=== PATIENT | female | born 1990 | race Caucasian/White ===

== ENCOUNTER → 2018-10-26 | Outpatient (CLI) | payer OTHER | LOC: M LRY 11:32 | PROVIDERS: ATTEND Physician Assistant | DX: Z53.9 Procedure and treatment not carried out, unspecified reason (principal); R06.2 Wheezing ==

== ENCOUNTER → 2018-10-26 | Outpatient (CLI) | payer OTHER ==
--- NOTE | 2018-10-26 12:19 | REP ---
Chest two views HISTORY: Cough Comparison: None Patchy density is present in the left lower lobe consistent with an infiltrate. The right lung is clear. The heart is normal in size. The pulmonary vasculature is normal in appearance. The bony structure is intact. IMPRESSION: Left lower lobe infiltrate. Electronically Signed by Santosh Tuttle MD 10/26/2018 12:11 P
== END ==
LOC: M LRY 11:33
PROVIDERS: ATTEND Physician Assistant
DX: R91.8 Other nonspecific abnormal finding of lung field (principal)
CPT/HCPCS: 71046; 87804; G0463

== ENCOUNTER → 2018-12-13 | Outpatient (CLI) | payer OTHER ==
--- NOTE | 2018-12-13 13:18 | REP ---
TWO-VIEW CHEST: REASON: Cough. COMPARISON: 10/26/2018 FINDINGS: The superior mediastinal structures are midline. The cardiac silhouette is unremarkable in size, shape, and position. The diaphragmatic surfaces of the lungs are regular, and the costophrenic angles are clear. The pulmonary rivera are clear. The imaged osseous structures are intact. IMPRESSION: There is no acute cardiopulmonary disease. Electronically Signed by Phil Doll DO 12/13/2018 01:36 P
== END ==
LOC: M LRY 11:54
PROVIDERS: ATTEND Nurse Practitioner Family
DX: R05 Cough (principal)
CPT/HCPCS: 71046; G0463

== ENCOUNTER → 2020-02-14 | Outpatient (CLI) | payer OTHER ==
--- NOTE | 2020-02-21 11:34 | REP ---
COMPLETE OBSTETRICAL ULTRASOUND CLINICAL: Anatomical assessment. FINDINGS: Ultrasound examination demonstrates a single live intrauterine in cephalic presentation. Placenta noted anteriorly and grade 1 without placenta previa or abruption. Amniotic fluid volume is normal. Cervix measures 3.6 cm in length and appears closed. Gestational age by current measurements 19 weeks 4 days with estimated date of delivery 07/06/2020. heart rate 143 beats per minute. Estimated weight 289 grams. Anatomical assessment demonstrates normal cranium, ventricles, choroid plexus, cerebellum, posterior fossa, facial features, four chamber heart, ventricular outflow tracts, diaphragm, stomach, three-vessel cord/cord insertion, kidneys, bladder, spine, and extremities. IMPRESSION: Single live intrauterine in cephalic presentation demonstrating appropriate interval growth. Anatomical assessment is complete and normal. [facility]
== END ==
LOC: M WHC 07:42
PROVIDERS: ATTEND Advanced Practice Midwife
DX: Z34.82 Encounter for supervision of other normal pregnancy, second trimester (principal); Z3A.19 19 weeks gestation of pregnancy

== ENCOUNTER → 2020-04-03 | Outpatient (REF) | payer OTHER ==
[2020-04-03 13:26] LABS: HEMATOCRIT 36.3 % (36.0-47.0); HEMOGLOBIN 11.6 g/dl (12.0-15.5); MEAN CORPUSCULAR HEMOGLOBIN 30.8 pg (27.0-33.0); MEAN CORPUSCULAR VOLUME 96.3 fl (80.0-96.0); PLATELET COUNT, AUTOMATED 338 10^3/uL (150-450); RED BLOOD COUNT 3.77 10^6/uL (4.00-5.40); WHITE BLOOD COUNT 9.2 10^3/uL (4.0-10.0)
== END ==
LOC: M PLALAB 10:27
PROVIDERS: ATTEND Specialist
DX: Z34.02 Encounter for supervision of normal first pregnancy, second trimester (principal); Z3A.00 Weeks of gestation of pregnancy not specified

== ENCOUNTER → 2020-06-14 | Outpatient (REF) | payer OTHER | LOC: M SFHCWAGY 15:13 | PROVIDERS: ATTEND Specialist | DX: Z34.03 Encounter for supervision of normal first pregnancy, third trimester (principal) | CPT/HCPCS: 87081; G0463 ==

== ENCOUNTER 2020-07-03 16:47 | Inpatient (IN) | payer OTHER ==
[~2020-07-03] VITALS: Ht 162.6 cm; Wt 95.7 kg
[2020-07-03] VITALS (12 sets, daily range): BP systolic 132–165; BP diastolic 86–110
--- OUTSIDE RECORDS SUMMARY | 2020-07-03 16:52 | CCD ---
Author Author [facility] Organization [facility] Address Unknown Phone Unavailable Care Team Providers Care Icu Manager Name Role Phone Destinee Lobato Unavailable PROBLEMS Type Condition ICD9-CM Code [id number] Code Onset Dates Condition S tatus SNOMED Code Notes Problem Supervision of other normal Z34.80 Ac tive [id number] ALLERGIES No Known Allergies ENCOUNTERS from 1992 to 2020-06-22 Encounter Location Date Provider Diagnosis [facility] [address] [place] [phone] May, Destinee Lobato Encounter for prenat al care in third trimester of first Z34.03 IMMUNIZATIONS No Information SOCIAL HISTORY Tobacco Use: Social History Observation Description Date Details (start date - stop date) Never Smoker Sex Assigned At : Social History Observation Description Sex Assigned At Unknown Domestic Violence: Question Answer Notes Status: No history of abuse Alcohol Screening: Question Answer Notes Did you have a drink containing alcohol in the past year? No Points 0 Interpretation Negative Tobacco Use: Question Answer Notes Are you a: never smoker REASON FOR REFERRAL No Information VITAL SIGNS Weight 207.6 lbs May, Weight-kg 94.17 kg May, Height 64 in May, BMI 35.634 kg/m2 May, Blood pressure systolic 130 mm Hg May, Blood pressure diastolic 80 mm Hg May, MEDICATIONS Medication SIG (Take, Route, Frequency, Duration) Notes Start Da te End Date Status ProAir HFA 108 (90 Base) mcg/act 2 puffs as needed Inhalation qid prn Active Melatonin 10 MG as directed Orally A ctive Multivitamin Gummies Adults - as directed Orally Active Flovent HFA 110 MCG/ACT 1 puff Inhalation Twice a day Active Benadryl Allergy 25 MG 1 tablet at bedtime as needed Orally 2 at HS Active PROCEDURES No Information RESULTS No Results REASON FOR VISIT 1wk pn MEDICAL (GENERAL) HISTORY Type Description Date Medical History asthma Surgical History wisdom teeth Hospitalization History No know Hospitalization history Goals Section No Information Health Concerns No Information MEDICAL EQUIPMENT No Information MENTAL STATUS No Information FUNCTIONAL STATUS No Information ASSESSMENTS Encounter Date Diagnosis Assessment Notes Treatment Notes Treatm ent Clinical Notes May, Encounter for care in third trimester of first (ICD-10 - Z34.03) PLAN OF TREATMENT Next Appt Details 1 Week Reason: Provider Name:Monika Teixeira, 2020-06 09:00:00 AM, [address] [place] [address], [phone], Provider Name:Santosh Justice, 2020-07-05 09:00:00 AM, [address] [place] [address], [phone], Insurance Providers Payer Name Payer Address Payer Phone Insured Name Patient Relati onship to Insured Coverage Start Date Coverage End Date [facility] [employer] [address] [place] [id number] ANGELICA HERNÁNDEZ
--- OUTSIDE RECORDS SUMMARY | 2020-07-03 16:53 | CCD ---
Author Author [facility] Organization [facility] Address Unknown Phone Unavailable Care Team Providers Care Multiple Games Dealer Name Role Phone Philip Rachelle Unavailable PROBLEMS Type Condition ICD9-CM Code [id number] Code Onset Dates Condition S tatus SNOMED Code Notes Problem Supervision of other normal Z34.80 Ac tive [id number] ALLERGIES No Known Allergies ENCOUNTERS from 1992 to 2020-04-26 Encounter Location Date Provider Diagnosis [facility] [address] [place] [phone] Apr, Rachelle Palacios Encounter for superv ision of normal first in third trimester Z34.03 and 29 weeks gestation of Z3A.29 IMMUNIZATIONS No Information SOCIAL HISTORY Tobacco Use: [...] FOR REFERRAL No Information VITAL SIGNS Weight 198.0 lbs Apr, Height 64 in Apr, BMI 33.987 kg/m2 Apr, Blood pressure systolic 118 mm Hg Apr, Blood pressure diastolic 74 mm Hg Apr, MEDICATIONS Medication SIG (Take, Route, Frequency, Duration) Notes Start Da te End Date Status Benadryl Allergy 25 MG 1 tablet at bedtime as needed Orally 2 at HS Active Flovent HFA 110 MCG/ACT 1 puff Inhalation Twice a day Active Multivitamin Gummies Adults - as directed Orally Active Melatonin 10 MG as directed Orally A ctive ProAir HFA 108 (90 Base) mcg/act 2 puffs as needed Inhalation qid prn Active PROCEDURES No Information RESULTS No Results REASON FOR VISIT 4 WK PN MEDICAL (GENERAL) HISTORY Type Description Date Medical History asthma Surgical History wisdom teeth Hospitalization History none Goals Section No Information Health Concerns No Information MEDICAL EQUIPMENT No Information MENTAL STATUS No Information FUNCTIONAL STATUS No Information ASSESSMENTS Encounter Date Diagnosis Assessment Notes Treatment Notes Treatm ent Clinical Notes Apr, Encounter for supervision of normal first in third trimester (ICD-10 - Z34.03) Apr, 29 weeks gestation of (ICD-10 - Z3A.29 ) PLAN OF TREATMENT Next Appt Details 2 Weeks Reason: Provider Name:Santosh Justice 2020-05-10 08:40:00 AM, [address] [place], [phone], Follow Up:2 Weeksprenatal Insurance Providers Payer Name Payer Address Payer Phone Insured Name Patient Relati onship to Insured Coverage Start Date Coverage End Date [facility] [employer] [address] [place] [id number] ANGELICA HERNÁNDEZ
--- OUTSIDE RECORDS SUMMARY | 2020-07-03 16:53 | CCD ---
Author Author [facility] Organization [facility] Address Unknown Phone Unavailable Care Team Providers Care Inspector Chief Name Role Phone Patrica Marcell Unavailable PROBLEMS Type Condition ICD9-CM Code [id number] Code Onset Dates Condition S tatus SNOMED Code Notes Problem Supervision of other normal Z34.80 Ac tive [id number] ALLERGIES No Known Allergies ENCOUNTERS from 1992 to 2020-06-04 Encounter Location Date Provider Diagnosis [facility] [address] [place] [phone] May, Marcell Burciaga Encounter for superv ision of normal first in third trimester Z34.03 and 34 weeks gestation of Z3A.34 IMMUNIZATIONS No Information SOCIAL HISTORY Tobacco Use: [...] FOR REFERRAL No Information VITAL SIGNS Weight 204 lbs May, Height 64 in May, BMI 35.017 kg/m2 May, Blood pressure systolic 112 mm Hg May, Blood pressure diastolic 70 mm Hg May, MEDICATIONS Medication SIG (Take, Route, Frequency, Duration) Notes Start Da te End Date Status Multivitamin Gummies Adults - as directed Orally Active ProAir HFA 108 (90 Base) mcg/act 2 puffs as needed Inhalation qid prn Active Melatonin 10 MG as directed Orally A ctive Flovent HFA 110 MCG/ACT 1 puff Inhalation Twice a day Active Benadryl Allergy 25 MG 1 tablet at bedtime as needed Orally 2 at HS Active PROCEDURES No Information RESULTS No Results REASON FOR VISIT 2 WK PN MEDICAL (GENERAL) HISTORY Type Description Date Medical History asthma Surgical History wisdom teeth Hospitalization History No know Hospitalization history Goals Section No Information Health Concerns No Information MEDICAL EQUIPMENT No Information MENTAL STATUS No Information FUNCTIONAL STATUS No Information ASSESSMENTS Encounter Date Diagnosis Assessment Notes Treatment Notes Treatm ent Clinical Notes May, Encounter for supervision of normal first in third trimester (ICD-10 - Z34.03) May, 34 weeks gestation of (ICD-10 - Z3A.34 ) PLAN OF TREATMENT Next Appt Details 2 Weeks Reason:PN Provider Name:Santosh Justice, 2020-06-14 09:00:00 AM, [address] [place] [address], [phone], Provider Name:Destinee Lobato, 2020-06-21 0 3:00:00 PM, [address] [place] [address], [phone], Provider Name:Monika Teixeira, 2020-06 09:00:00 AM, [address] [place] [address], [phone], Provider Name:Santosh Justice, 2020-07-05 09:00:00 AM, [address] [place] [address], [phone], Follow Up:2 WeeksPN Insurance Providers Payer Name Payer Address Payer Phone Insured Name Patient Relati onship to Insured Coverage Start Date Coverage End Date [facility] [employer] [address] [facility] [id number] ANGELICA HERNÁNDEZ
--- OUTSIDE RECORDS SUMMARY | 2020-07-03 16:53 | CCD ---
Author Author [facility] Organization [facility] Address Unknown Phone Unavailable Care Team Providers Care Housing Relocation Name Role Phone Santosh Justice Unavailable PROBLEMS Type Condition ICD9-CM Code TIR98-NE Code Onset Dates Condition S tatus SNOMED Code Notes Problem Supervision of other normal Z34.80 Ac tive [id number] ALLERGIES No Known Allergies ENCOUNTERS from 1992 to 2020-06-21 Encounter Location Date Provider Diagnosis [facility] [address] [place] [phone] May, Santosh Justice First in a dolescent 16 years of age or older in third trimester Z34.03 and 36 weeks gestation of Z3A.36 IMMUNIZATIONS No Information SOCIAL HISTORY Tobacco Use: [...] FOR REFERRAL No Information VITAL SIGNS Weight 208.2 lbs May, Weight-kg 94.44 kg May, Height 64 in May, BMI 35.737 kg/m2 May, Blood pressure systolic 124 mm Hg May, Blood pressure diastolic 80 [...] at HS Active PROCEDURES No Information RESULTS Component Value Reference Range GROUP B STREP CULTURE Reviewed date:06/19/2020 12:21:30 Interpretation: Performing Lab:Pending Sale To [facility], [facility] [address] [facility] [id number] , ,[place] [id number] REASON FOR VISIT 2 WK PN MEDICAL (GENERAL) HISTORY Type Description Date Medical History asthma Surgical History wisdom teeth Hospitalization History No know Hospitalization history Goals Section No Information Health Concerns No Information MEDICAL EQUIPMENT No Information MENTAL STATUS No Information FUNCTIONAL STATUS No Information ASSESSMENTS Encounter Date Diagnosis Assessment Notes Treatment Notes Treatm ent Clinical Notes May, First in adolescen t 16 years of age or older in third trimester (ICD-10 - Z34.03) May, 36 weeks gestation of (ICD-10 - Z3A.36 ) PLAN OF TREATMENT Next Appt Details Provider Name:Monika Teixeira, 2020-06 09:00:00 AM, [address] [place] [address], [phone], Provider Name:Santosh Justice, 2020-07-05 09:00:00 AM, [address] [place] [address], [phone], Insurance Providers Payer Name Payer Address Payer Phone Insured Name Patient Relati onship to Insured Coverage Start Date Coverage End Date [facility] [employer] [address] [place] [id number] ANGELICA HERNÁNDEZ
--- OUTSIDE RECORDS SUMMARY | 2020-07-03 16:53 | CCD ---
Author Author [facility] Organization [facility] Address Unknown Phone Unavailable Care Team Providers Care Animal Killer Name Role Phone O'elder, A Lane PA Unavailable Unavailable O'elder, A Lane PA Unavailable Unavailable O'elder, A Lane PA Unavailable Unavailable O'elder, A Lane PA Unavailable Unavailable O'elder, A Lane PA Unavailable Unavailable O'elder, A Lane PA Unavailable Unavailable O'elder, A Lane PA Unavailable Unavailable O'elder, A Lane PA Unavailable Unavailable O'elder, A Lane PA Unavailable Unavailable O'elder, A Lane PA Unavailable Unavailable O'elder, A Lane PA Unavailable Unavailable O'elder, A Lane PA Unavailable Unavailable O'elder, A Lane PA Unavailable Unavailable O'elder, A Lane PA Unavailable Unavailable O'elder, A Lane PA Unavailable Unavailable O'elder, A Lane PA Unavailable Unavailable O'elder, A Lane PA Unavailable Unavailable O'elder, A Lane PA Unavailable Unavailable O'elder, A Lane PA Unavailable Unavailable O'elder, A Lane PA Unavailable Unavailable O'elder, A Lane PA Unavailable Unavailable O'elder, A Lane PA Unavailable Unavailable O'elder, A Lane PA Unavailable Unavailable O'elder, A Lane PA Unavailable Unavailable O'elder, A Lane PA Unavailable Unavailable O'elder, A Lane PA Unavailable Unavailable O'elder, A Lane PA Unavailable Unavailable O'elder, A Lane PA Unavailable Unavailable O'elder, A Lane PA Unavailable Unavailable O'elder, A Lane PA Unavailable Unavailable O'elder, A Lane PA Unavailable Unavailable O'elder, A Lane PA Unavailable Unavailable Re-disclosure Warning The records that you are about to access may contain information from federally-assisted alcohol or drug abuse programs. If such information is present, then the following federally mandated warning applies: This information has been disclosed to you from records protected by federal confidentiality rules (42 CFR part 2). The federal rules prohibit you from making any further disclosure of this information unless further disclosure is expressly permitted by the written consent of the person to whom it pertains or as otherwise permitted by 42 CFR part 2. A general authorization for the release of medical or other information is NOT sufficient for this purpose. The Federal rules restrict any use of the information to criminally investigate or prosecute any alcohol or drug abuse patient.The records that you are about to access may contain highly sensitive health information, the redisclosure of which is protected by Article 27-F of the [facility] Public Health law. If you continue you may have access to information: Regarding HIV / AIDS; Provided by facilities licensed or operated by the [facility] Office of Mental Health; or Provided by the [facility] Office for People With Developmental Disabilities. If such information is present, then the following [facility] mandated warning applies: This information has been disclosed to you from confidential records which are protected by state law. State law prohibits you from making any further disclosure of this information without the specific written consent of the person to whom it pertains, or as otherwise permitted by law. Any unauthorized further disclosure in violation of state law may result in a fine or intermediate sentence or both. A general authorization for the release of medical or other information is NOT sufficient authorization for further disc losure. Encounters Encounter Providers Location Date Indications Data Source(s ) ( ESTOB) [facility] OB [address] [place] [address] 06/21/2020 12:00:00 AM EST eCW1 ([facility]) ( ESTOB) [facility] Est OB [address] [place] [address] 06/14/2020 12:00:00 AM EST eCW1 ([facility]) ( ESTOB) [facility] OB [address] [place] [address] 05/31/2020 12:00:00 AM EST eCW1 ([facility]) ( ESTOB) [facility] OB [address] [place] [address] 05/15/2020 12:00:00 AM EST eCW1 ([facility]) Unknown [address] [facility] [address] 04/30/2020 12:00:00 AM EST eCW1 ([facility]) ( ESTOB) [facility] Est OB [address] [place] [address] 04/24/2020 12:00:00 AM EST eCW1 ([facility]) ( ESTOB) [facility] Est OB [address] [place] [address] 03/22/2020 12:00:00 AM EDT eCW1 ([facility]) ( NEWOB) [facility] New OB Visit [address] [place] [address] 12/13/2019 12:00:00 AM EDT eCW1 ([facility]) Outpatient Attender: Lane ANTHONY [facility] 11/13/2019 03:40:00 PM EDT MEDENT ([facility]) Outpatient Attender: Lane ANTHONY [facility] 10/20/2019 08:00:00 AM EDT [facility] ([facility]) Medications Medication Brand Name Start Date Product Form Dose Route Admi nistrative Instructions Pharmacy Instructions Status Indications Reaction Description Data Source(s) 120 ACTUAT Fluticasone propionate 0.11 MG/ACTUAT Meter ed Dose Inhaler [Flovent] Flovent HFA 06/07/2019 12:00:00 AM EST ORAL active MEDENT ([facility]) Insurance Providers Payer name Policy type / Coverage type Policy ID Covered republican ID Covered republican's relationship to ward Policy Ward Plan Information [facility] [id number] [facility] [id number] [facility] [id number] [facility] [id number] ANSI-Not a Secondary Insurance [id number] Problems, Conditions, and Diagnoses Code Display Name Description Problem Type Effective Dates Data Source(s) Z34.80 care Supervision of other normal Tone garcia 12/11/2019 12:00:00 AM EDT eCW1 ([facility]) [id number] Mild persistent asthma Mild persistent asthma Problem 10/20/2019 12:00:00 AM EDT MEDENT ([facility]) [id number] Vitamin D deficiency Vitamin D deficiency Problem 10/20/2019 12:00:00 AM EDT MED[facility] ([facility]) Other sleep disorders Other sleep disorders Problem 10/20/2019 12:00:00 AM EDT MED[facility] ([facility]) Results ID Date Data Source GROUP B STREP CULTURE 06/14/2020 12:00:00 AM EST eCW1 ([facility]) Name Value Range Interpretation Code Description Data Linda rce(s) Supporting Document(s) GROUP B STREP CULTURE eCW1 (Pending sale to [facility]) ID Date Data Source Glucose Challenge Test 1 Hour 04/03/2020 12:00:00 AM EST eCW 1 ([facility]) Name Value Range Interpretation Code Description Data Linda rce(s) Supporting Document(s) 117 LESS THAN 140 GLUCOSE CHALLENGE TEST 1 HOUR eCW1 ([facility]) ID Date Data Source CBC - Complete Blood Count 04/03/2020 12:00:00 AM EST eCW1 ( [facility]) Name Value Range Interpretation Code Description Data Linda rce(s) Supporting Document(s) 9.2 4.0-10.0 WHITE BLOOD COUNT eCW1 ([facility]) 3.77 4.00-5.40 RED BLOOD COUNT eCW1 ([facility]) 96.3 80.0-96.0 MEAN CORPUSCULAR VOLUME e CW1 ([facility]) 11.6 12.0-15.5 HEMOGLOBIN eCW1 ([facility]) 36.3 36.0-47.0 HEMATOCRIT eCW1 ([facility]) 30.8 27.0-33.0 MEAN CORPUSCULAR HEMOGLOB IN eCW1 ([facility]) 338 150-450 PLATELET COUNT, AUTOMATED eCW1 ([facility]) 32.0 32.0-36.5 MEAN CORPUSCULAR HGB CONC eCW1 ([facility]) 12.9 11.5-14.5 RED CELL DISTRIBUTION WID TH eCW1 ([facility]) ID Date Data Source Type and Screen (D Rh Antibody Screen) 04/03/2020 12:00:00 A M EST eCW1 ([facility]) Name Value Range Interpretation Code Description Data Linda rce(s) Supporting Document(s) B POSITIVE BLOOD TYPE eCW1 ([facility]) NEGATIVE AB SCREEN (INDIRECT COOMB S)VIS eCW1 ([facility]) ID Date Data Source CHLAMYDIA & GC DNA AMPLIFICAT 12/15/2019 03:35:52 AM EDT eCW 1 ([facility]) Name Value Range Interpretation Code Description Data Linda rce(s) Supporting Document(s) Chlamydia trachomatis rRNA [Presence] in Unspecified specimen by Probe and target amplification method NEGATIVE eCW1 ([facility]) ID Date Data Source URINE CULTURE 12/15/2019 03:18:51 AM EDT eCW1 ([facility]) Name Value Range Interpretation Code Description Data Linda rce(s) Supporting Document(s) eCW1 ([facility]) ID Date Data Source Type and Screen Prenatal1 12/15/2019 03:18:47 AM EDT eCW1 ([facility]) Name Value Range Interpretation Code Description Data Linda rce(s) Supporting Document(s) NEGATIVE eCW1 ([facility]) ID Date Data Source HBSAG 12/15/2019 03:18:42 AM EDT eCW1 ([facility]) Name Value Range Interpretation Code Description Data Linda rce(s) Supporting Document(s) NEGATIVE eCW1 ([facility]) ID Date Data Source HEPATITIS C ANTIBODY INDEX 12/15/2019 03:18:38 AM EDT eCW1 ( [facility]) Name Value Range Interpretation Code Description Data Linda rce(s) Supporting Document(s) 0.1 eCW1 ([facility]) ID Date Data Source RUBELLA IMMUNE STATUS IgG 12/15/2019 03:18:24 AM EDT eCW1 ([facility]) Name Value Range Interpretation Code Description Data Linda rce(s) Supporting Document(s) IMMUNE eCW1 ([facility]) ID Date Data Source SYPHILIS ANTIBODY (RPR SCREEN) 12/15/2019 03:18:13 AM EDT eC W1 ([facility]) Name Value Range Interpretation Code Description Data Linda rce(s) Supporting Document(s) NONREACTIVE eCW1 ([facility]) ID Date Data Source [id number] 12/15/2019 03:18:08 AM EDT eCW1 ([facility]) Name Value Range Interpretation Code Description Data Linda rce(s) Supporting Document(s) eCW1 ([facility]) ID Date Data Source [id number] 11/13/2019 04:30:00 PM EDT MEDENT ([facility]) Name Value Range Interpretation Code Description Data Linda rce(s) Supporting Document(s) Inhouse Urine Laboratory test result MEDENT ([facility]) Procedure Social History Code Duration Value Status Description Data Source(s ) Smoking 06/14/2020 12:00:00 AM EST Never Smoker completed Never S moker eCW1 ([facility]) Smoking 06/14/2020 12:00:00 AM EST Never Smoker completed Never S moker eCW1 ([facility]) Smoking 05/31/2020 12:00:00 AM EST Never Smoker completed Never S moker eCW1 ([facility]) Smoking 05/14/2020 12:00:00 AM EST Never Smoker completed Never S moker eCW1 ([facility]) Smoking 04/15/2020 12:00:00 AM EST Never Smoker completed Never S moker eCW1 ([facility]) Smoking 04/15/2020 12:00:00 AM EST Never Smoker completed Never S moker eCW1 ([facility]) Smoking 03/21/2020 12:00:00 AM EDT Never Smoker completed Never S moker eCW1 ([facility]) Smoking 12/13/2019 12:00:00 AM EDT Never Smoker completed Never S moker eCW1 ([facility]) Vital Signs ID Date Data Source UNK Name Value Range Interpretation Code Description Data Source(s) Diastolic blood pressure 80 mm[Hg] 80 mm[Hg] eCW1 ([facility]) Systolic blood pressure 130 mm[Hg] 130 mm[Hg] e CW1 ([facility]) Body mass index (BMI) [Ratio] 35.634 kg/m2 35.6 34 kg/m2 eCW1 ([facility]) Body height 64 [in_i] 64 [in_i] eCW1 ([facility]) Body weight 94.17 kg 94.17 kg eCW1 ([facility]) Body weight 207.6 [lb_av] 207.6 [lb_av] eCW1 ([facility]) Diastolic blood pressure 80 mm[Hg] 80 mm[Hg] eCW1 ([facility]) Systolic blood pressure 124 mm[Hg] 124 mm[Hg] e CW1 ([facility]) Body mass index (BMI) [Ratio] 35.737 kg/m2 35.7 37 kg/m2 W1 ([facility]) Body height 64 [in_i] 64 [in_i] eCW1 ([facility]) Body weight 94.44 kg 94.44 kg W1 ([facility]) Body weight 208.2 [lb_av] 208.2 [lb_av] eCW1 ([facility]) Diastolic blood pressure 70 mm[Hg] 70 mm[Hg] eCW1 ([facility]) Systolic blood pressure 112 mm[Hg] 112 mm[Hg] e CW1 ([facility]) Body mass index (BMI) [Ratio] 35.017 kg/m2 35.0 17 kg/m2 eCW1 ([facility]) Body height 64 [in_i] 64 [in_i] eCW1 ([facility]) Body weight 204 [lb_av] 204 [lb_av] eCW1 ([facility]) Diastolic blood pressure 80 mm[Hg] 80 mm[Hg] eCW1 ([facility]) Systolic blood pressure 132 mm[Hg] 132 mm[Hg] e CW1 ([facility]) Body mass index (BMI) [Ratio] 35.017 kg/m2 35.0 17 kg/m2 eCW1 ([facility]) Body height 64 [in_i] 64 [in_i] eCW1 ([facility]) Body weight 204 [lb_av] 204 [lb_av] eCW1 ([facility]) Diastolic blood pressure 74 mm[Hg] 74 mm[Hg] eCW1 ([facility]) Systolic blood pressure 118 mm[Hg] 118 mm[Hg] e CW1 ([facility]) Body mass index (BMI) [Ratio] 33.987 kg/m2 33.9 87 kg/m2 eCW1 ([facility]) Body height 64 [in_i] 64 [in_i] eCW1 ([facility]) Body weight 198.0 [lb_av] 198.0 [lb_av] eCW1 ([facility]) Diastolic blood pressure 76 mm[Hg] 76 mm[Hg] eCW1 ([facility]) Systolic blood pressure 120 mm[Hg] 120 mm[Hg] e CW1 ([facility]) Body mass index (BMI) [Ratio] 33.403 kg/m2 33.4 03 kg/m2 W1 ([facility]) Body height 64 [in_i] 64 [in_i] eCW1 ([facility]) Body weight 88.27 kg 88.27 kg eCW1 ([facility]) Body weight 194.6 [lb_av] 194.6 [lb_av] eCW1 ([facility]) Diastolic blood pressure 82 mm[Hg] 82 mm[Hg] eCW1 ([facility]) Systolic blood pressure 128 mm[Hg] 128 mm[Hg] e CW1 ([facility]) Body mass index (BMI) [Ratio] 29.798 kg/m2 29.7 98 kg/m2 eCW1 ([facility]) Body height 64 [in_i] 64 [in_i] eCW1 ([facility]) Body weight 173.6 [lb_av] 173.6 [lb_av] eCW1 ([facility]) Oxygen saturation in Arterial blood by Pulse oximetry 9 % 9 % MEDENT ([facility]) Body temperature 99.7 [degF] 99.7 [degF] MEDENT ([facility]) Respiratory rate 18 /min 18 /min MEDENT ( [facility]) Heart rate 85 /min 85 /min MEDENT ([facility]) Body mass index (BMI) [Ratio] 29.2 kg/m2 29.2 k g/m2 MEDENT ([facility]) Body weight 170.00 [lb_av] 170.00 [lb_av] MEDEN T ([facility]) Body height 64 [in_i] 64 [in_i] MEDENT ([facility]) 5'4" Diastolic blood pressure 72 mm[Hg] 72 mm[Hg] MEDENT ([facility]) Systolic blood pressure 118 mm[Hg] 118 mm[Hg] M EDENT ([facility]) Systolic blood pressure 120 mm[Hg] 120 mm[Hg] M EDENT ([facility]) Oxygen saturation in Arterial blood by Pulse oximetry 99 % 99 % MEDENT ([facility]) Body temperature 99.3 [degF] 99.3 [degF] MEDENT ([facility]) Heart rate 70 /min 70 /min MEDENT ([facility]) Body mass index (BMI) [Ratio] 29.8 kg/m2 29.8 k g/m2 MEDENT ([facility]) Body weight 173.50 [lb_av] 173.50 [lb_av] MEDEN T ([facility]) Body height 64 [in_i] 64 [in_i] MEDENT ([facility]) 5'4" Diastolic blood pressure 80 mm[Hg] 80 mm[Hg] MEDENT ([facility])
--- OUTSIDE RECORDS SUMMARY | 2020-07-03 16:53 | CCD ---
Author Author [facility] Organization [facility] Address Unknown Phone Unavailable Care Team Providers Care Wireless Technician Name Role Phone Patrica Marcell Unavailable PROBLEMS Type Condition ICD9-CM Code [id number] Code Onset Dates Condition S tatus SNOMED Code Notes Problem Supervision of other normal Z34.80 Ac tive [id number] ALLERGIES No Known Allergies ENCOUNTERS from 1992 to 2020-05-22 Encounter Location Date Provider Diagnosis [facility] [address] [place] [phone] Apr, Marcell Burciaga Encounter for superv ision of normal first in third trimester Z34.03 and 32 weeks gestation of Z3A.32 IMMUNIZATIONS No Information SOCIAL HISTORY Tobacco Use: [...] No Information VITAL SIGNS Weight 204 lbs Apr, Height 64 in Apr, BMI 35.017 kg/m2 Apr, Blood pressure systolic 132 mm Hg Apr, Blood pressure diastolic 80 mm Hg Apr, MEDICATIONS Medication SIG (Take, Route, Frequency, Duration) Notes Start Da te End Date Status Benadryl Allergy 25 MG 1 tablet at bedtime as needed Orally 2 at HS Active Multivitamin Gummies Adults - as directed Orally Active ProAir HFA 108 (90 Base) mcg/act 2 puffs as needed Inhalation qid prn Active Melatonin 10 MG as directed Orally A ctive Flovent HFA 110 MCG/ACT 1 puff Inhalation Twice a day Active PROCEDURES No Information RESULTS No Results [...] in third trimester (ICD-10 - Z34.03) Apr, 32 weeks gestation of (ICD-10 - Z3A.32 ) PLAN OF TREATMENT Next Appt Details 2 Weeks Reason:follow-up Provider Name:Marcell Burciaga, 02:00:00 PM, [address] [place] [address], [phone], Provider Name:Santosh Justice, 2020-06-14 09:00:00 AM, [address] [place] [address], [phone], Follow Up:2 Weeksfollow-up Insurance Providers Payer Name Payer Address Payer Phone Insured Name Patient Relati onship to Insured Coverage Start Date Coverage End Date [facility] [id number] [place] [id number] ANGELICA HERNÁNDEZ
--- OUTSIDE RECORDS SUMMARY | 2020-07-03 16:53 | CCD ---
Author Author [facility] Organization [facility] Address Unknown Phone Unavailable Care Team Providers Care Traffic Survey Technician Name Role Phone Santosh Justice Unavailable PROBLEMS Type Condition ICD9-CM Code UKP10-DL Code Onset Dates Condition S tatus SNOMED Code Notes Problem Supervision of other normal Z34.80 Ac tive [id number] ALLERGIES No Known Allergies ENCOUNTERS from 1992 to 2020-05-06 Encounter Location Date Provider Diagnosis [facility] [address] [place] [phone] Apr, Santosh Justice IMMUNIZATIONS No Information SOCIAL HISTORY Tobacco Use: [...] REASON FOR REFERRAL No Information VITAL SIGNS No information MEDICATIONS Medication SIG (Take, Route, Frequency, Duration) [...] Information RESULTS No Results REASON FOR VISIT Symptoms MEDICAL (GENERAL) HISTORY Type Description Date Medical History asthma Surgical History wisdom teeth Hospitalization History none Goals Section No Information Health Concerns No Information MEDICAL EQUIPMENT No Information MENTAL STATUS No Information FUNCTIONAL STATUS No Information ASSESSMENTS No Information PLAN OF TREATMENT Next Appt Details Provider Name:Marcell Burciaga, 08:40:00 AM, [address] [place], [phone], Insurance Providers Payer Name Payer Address Payer Phone Insured Name Patient Relati onship to Insured Coverage Start Date Coverage End Date [facility] [id number] [facility] [id number] ANGELICA HERNÁNDEZ
--- OUTSIDE RECORDS SUMMARY | 2020-07-03 16:53 | CCD ---
Author Author [facility] Organization [facility] Address Unknown Phone Unavailable Care Team Providers Care Child Caregiver Name Role Phone Santosh Justice Unavailable PROBLEMS Type Condition ICD9-CM Code [id number] Code Onset Dates Condition S tatus SNOMED Code Notes Problem Supervision of other normal Z34.80 Ac tive [id number] ALLERGIES No Known Allergies ENCOUNTERS from 1992 to 2020-04-10 Encounter Location Date Provider Diagnosis [facility] [address] [place] [phone] Feb, Santosh Justice Normal first pregnan cy in second trimester Z34.02 and 24 weeks gestation of Z3A.24 IMMUNIZATIONS No Information SOCIAL HISTORY Tobacco Use: [...] FOR REFERRAL No Information VITAL SIGNS Weight 194.6 lbs Feb, Weight-kg 88.27 kg Feb, Height 64 in Feb, BMI 33.403 kg/m2 Feb, Blood pressure systolic 120 mm Hg Feb, Blood pressure diastolic 76 mm Hg Feb, MEDICATIONS Medication SIG (Take, Route, Frequency, Duration) Notes Start Da te End Date Status Melatonin 10 MG as directed Orally A ctive Multivitamin Gummies Adults - as directed Orally Active Flovent HFA 110 MCG/ACT 1 puff Inhalation Twice a day Active Benadryl Allergy 25 MG 1 tablet at bedtime as needed Orally 2 at HS Active ProAir HFA 108 (90 Base) mcg/act 2 puffs as needed Inhalation qid prn Active PROCEDURES No Information RESULTS Component Value Reference Range Type and Screen (D Rh Antibody Screen) Reviewed date:04/08/2020 10:45:01 Interpretation: Performing Lab:[facility] [address] [facility] [address] , ,[place] [address] BLOOD TYPE B POSITIVE AB SCREEN (INDIRECT ALYSSA)VIS NEGATIVE CBC - Complete Blood Count Reviewed date:04/08/2020 10:44:57 Interpretation: Performing Lab:[facility] [address] [facility] [address] , ,[place] [address] WHITE BLOOD COUNT 9.2 4.0-10.0 RED BLOOD COUNT 3.77 4.00-5.40 HEMOGLOBIN 11.6 12.0-15.5 HEMATOCRIT 36.3 36.0-47.0 MEAN CORPUSCULAR VOLUME 96.3 80.0-96.0 MEAN CORPUSCULAR HEMOGLOBIN 30.8 27.0-33.0 MEAN CORPUSCULAR HGB CONC 32.0 32.0-36.5 RED CELL DISTRIBUTION WIDTH 12.9 11.5-14.5 PLATELET COUNT, AUTOMATED 338 150-450 Glucose Challenge Test 1 Hour Reviewed date:04/08/2020 10:45:15 Interpretation: Performing Lab:[facility] [address] [facility] [address] , ,[place] [address] GLUCOSE CHALLENGE TEST 1 HOUR 117 LESS THAN 140 REASON FOR VISIT 4wk pn MEDICAL (GENERAL) HISTORY Type Description Date Medical History asthma Surgical History wisdom teeth Hospitalization History none Goals Section No Information Health Concerns No Information MEDICAL EQUIPMENT No Information MENTAL STATUS No Information FUNCTIONAL STATUS No Information ASSESSMENTS Encounter Date Diagnosis Assessment Notes Treatment Notes Treatm ent Clinical Notes Feb, Normal first in second trimester (ICD- 10 - Z34.02) Feb, 24 weeks gestation of (ICD-10 - Z3A.24 ) PLAN OF TREATMENT Treatment Notes Test Name Order Date AB SCREEN (INDIRECT ALYSSA)GEL Antibody Screen 2020-03 Next Appt Details Provider Name:Rachelle Palacios, 2020-04-24 09:00:00 AM, [address] [place], [phone], Insurance Providers Payer Name Payer Address Payer Phone Insured Name Patient Relati onship to Insured Coverage Start Date Coverage End Date [facility] [employer] [id number] [place] [id number] ANGELICA HERNÁNDEZ
[2020-07-03] MEDS ORDERED: PROAAER10 INH (17:18)
[2020-07-03] MEDS ORDERED: FLUT44IN INH (17:18)
[2020-07-03] MEDS ORDERED: PNV1TAB6 PO (17:18)
[2020-07-03] MEDS: miSOPROStol 50MCG 1/2 TABLET PO SCH ×2 (18:31→22:30)
[2020-07-03 18:37] LABS: HEMOGLOBIN 12.4 g/dl (12.0-15.5); MEAN CORPUSCULAR HEMOGLOBIN 30.8 pg (27.0-33.0); MEAN CORPUSCULAR HGB CONC 33.5 g/dl (32.0-36.5); PLATELET COUNT, AUTOMATED 319 10^3/uL (150-450); RED BLOOD COUNT 4.02 10^6/uL (4.00-5.40); WHITE BLOOD COUNT 8.9 10^3/uL (4.0-10.0)
[2020-07-03 18:51] LABS: ALT/SGPT 20 U/L (12-78); BILIRUBIN,TOTAL 0.1 MG/DL (0.2-1.0); CREATININE FOR GFR 0.65 MG/DL (0.55-1.30); GLOMERULAR FILTRATION RATE > 60.0 (>60); LDH LACTATE DEHYDROGENASE 178 U/L (84-246); URIC ACID 4.7 MG/DL (2.6-6.0)
[2020-07-03 19:11] LABS: TOTAL PROTEIN,RANDOM URINE 27.8 MG/DL (0.0-12.0)
[2020-07-03] MEDS ORDERED: LABETALOL 100MG/20ML VIAL IV STA (22:49)
[2020-07-03] MEDS ORDERED: LABETALOL 100MG/20ML VIAL As Ordered ONE (22:50)
[2020-07-04] VITALS (56 sets, daily range): BP systolic 129–197; BP diastolic 73–105
[2020-07-04] MEDS: miSOPROStol 50MCG 1/2 TABLET PO SCH ×2 (02:46→06:50)
[2020-07-04] MEDS ORDERED: LABETALOL 100MG/20ML VIAL IV STA (07:18)
[2020-07-04] MEDS ORDERED: OXYTOCIN DRIP 30 UNITS in IV 1 EA IV SCH (12:15)
[2020-07-04] MEDS: LR 1,000 ML IV SCH ×2 (12:16→19:05)
--- NOTE | 2020-07-04 16:52 | IPNPDOC ---
Text Note Date of Service The patient was seen on 07/04/20. NOTE S: Denies headache, visual change or abd pain O: mildly elevated BPs Cat 1 tracing, +ctx Gen: well appearing cx: 1-/-2 cook cat placed 60/30ml A/P IOL for GHTN/preeclampsia -cont with pitocin -epidural or IV pain meds at request Cornelia Solorio MD VS,Gen, I+O VS, Gen I+O Laboratory Tests 07/03/20 18:17 Vital Signs Date Time Temp Pulse Resp B/P (MAP) Pulse Ox O2 Delivery O2 Flow Rate FiO2 07/04/20 12:17 97.7 85 18 157/95 (115) CORNELIA SOLORIO MD. Jul 04, 2020 16:52
[2020-07-04] MEDS ORDERED: BUTORPHANOL 2 MG/ML INJ (J0595) IV ONE (17:00)
[2020-07-04] MEDS ORDERED: PROMETHAZINE INJ 25 MG/ML VIAL (J2550) IV PRN (17:00)
[2020-07-04 20:28] LABS: HEMATOCRIT 38.8 % (36.0-47.0); HEMOGLOBIN 12.4 g/dl (12.0-15.5); MEAN CORPUSCULAR HEMOGLOBIN 30.2 pg (27.0-33.0); MEAN CORPUSCULAR VOLUME 94.4 fl (80.0-96.0); PLATELET COUNT, AUTOMATED 319 10^3/uL (150-450); RED BLOOD COUNT 4.11 10^6/uL (4.00-5.40); WHITE BLOOD COUNT 11.5 10^3/uL (4.0-10.0)
[2020-07-04] MEDS ORDERED: FENTANYL 2MCG/ML ROPIVACAINE 0.2% IN 0.9% NACL 100ML IVBAG As Ordered ONE (21:53)
[2020-07-05] VITALS (14 sets, daily range): BP systolic 134–176; BP diastolic 67–98
--- NOTE | 2020-07-05 02:25 | DNPDOC ---
[facility] Delivery Note Delivery Note DATE OF DELIVERY: 07/05/20 TIME OF : 0208 GENDER: Male APGARS: 8 and 9. WEIGHT: 3350 grams LACERATIONS: none ANESTHESIA: Epidural ESTIMATED BLOOD LOSS: 200 ml COUNTS: 5 laparotomy sponges accounted for prior to after delivery. DELIVERY NOTE: On 07/05/2020 29-year-old 1 now para 1 had a spontaneous vaginal delivery of a liveborn female infant Apgars 8 and 9 weight was 3350. Head was delivered occiput anterior (OA). There was a nuchal cord which was manually reduced, followed by delivery of the shoulders and corpus. Infant was handed to mom with a good cry. Cord was clamped times two and was cut by support person under my direction. Placenta was then drained and delivered grossly intact. A premixed bag of 500 mL of normal saline with 30 units of Pitocin was then bolused along with uterine massage until the uterus was firm. On inspection, cervix, vagina, perineum was grossly intact and hemostatic. Mom and baby in recovery on stable condition. The couples decided to name in daughter Gavin. GALEN FOSTER MD. Jul 05, 2020 02:25
[2020-07-05] MEDS ORDERED: ePHEDrine SULFATE 25 MG/5 ML(5MG/ML) SYRINGE IV PRN (03:15)
[2020-07-05] MEDS ORDERED: EPIDURAL/PCA KEYS XX PRN (03:15)
[2020-07-05] MEDS ORDERED: ONDANSETRON 4MG/2ML VIAL IV PRN (03:15)
[2020-07-05] MEDS ORDERED: REFRIGERATOR IV KEYS XX PRN (03:15)
[2020-07-05] MEDS ORDERED: LACTATED RINGER'S 1000 ML IV PRN (03:15)
[2020-07-05] MEDS ORDERED: EPIDURAL COMMENT XX SCH (03:15)
[2020-07-05] MEDS ORDERED: NALOXONE INJ 0.4MG/1ML VIAL (J2310 PER 1MG) IV PRN (03:15)
[2020-07-05] MEDS ORDERED: diphenhydrAMINE 50MG/ML VIAL (J1200) IV PRN (03:15)
[2020-07-05] MEDS ORDERED: FENTANYL/ROPIVACAINE/NACL BAG 100 ML EPIDURAL SCH (03:15)
[2020-07-05] MEDS ORDERED: OXYTOCIN DRIP 30 UNITS in IV 1 EA IV SCH (03:22)
[2020-07-05] MEDS ORDERED: IBUPROFEN 800 MG TAB PO PRN (03:30)
[2020-07-05] MEDS ORDERED: DOCUSATE SODIUM 100MG CAPSULE PO PRN (03:30)
[2020-07-05] MEDS ORDERED: IBUPROFEN 600MG TAB PO PRN (03:30)
[2020-07-05] MEDS ORDERED: BENZOCAINE 20% HEMORRHOIDAL OINTMENT 28GM TUBE TOP PRN (03:30)
[2020-07-05] MEDS ORDERED: ACETAMINOPHEN TAB 650MG DOSE (2X325MG) PO PRN (03:30)
[2020-07-05] MEDS ORDERED: RHOGAM 300 MCG (1500 IU) INJ (J2790) IM SCH (03:30)
[2020-07-05] MEDS ORDERED: MEASLES,MUMPS,RUBELLA VACCINE INJ (MMR-II) (90707) SC SCH (03:30)
[2020-07-05] MEDS: PRENATAL VITAMINS CHEWABLE TABLET PO SCH (07:52)
--- NOTE | 2020-07-05 10:11 | HPE ---
HISTORY AND PHYSICAL DATE OF ADMISSION: 07/03/2020 HISTORY OF PRESENT ILLNESS: Crystal is a 29-year-old, 1, para 0, at 39 and 2/7 weeks gestation, EDC of 07/08/2020 based on first trimester ultrasound, who presents to labor and delivery following a routine appointment in the office where she was noted to have elevated blood pressure. She denies headache, visual disturbances, epigastric pain and right upper quadrant discomfort. She denies contractions, vaginal bleeding and leakage of fluid. The fetus has been active. Her care was initiated at [facility] in the first trimester. course uncomplicated until today's presentation. OBSTETRIC HISTORY: Primigravida. OBSTETRIC LABS: B+. Antibody screen negative. Syphilis negative. Gonorrhea and Chlamydia negative. Hepatitis B negative. Hepatitis C negative. HIV negative. Rubella immune. Gestational diabetic screening 117. GBS is negative. PAST MEDICAL HISTORY: Asthma, childhood Varicella. PAST SURGICAL HISTORY: Jena teeth extraction. FAMILY HISTORY: Breast cancer, prostate cancer, multiple sclerosis. SOCIAL HISTORY: Patient is . She is a nonsmoker. She denies alcohol and drug use. She has no history of sexually transmitted infections. She denies history of abuse. ALLERGIES: No known drug allergies. CURRENT MEDICATIONS: vitamin. OBJECTIVE UPON ARRIVAL: Blood pressure is elevated 167/94 with a repeat 10 minutes later of 145/96. She is alert and oriented x3. heart rate is 135 with moderate variability, positive accelerations, negative decelerations. Contractions 3 to 5 minutes, not palpable. Her abdomen is gravid, cephalic presentation by Yrn's Maneuver. Estimated weight is 8 pounds. Cervical exam performed in the office by Rachelle Palacios, certified nurse gold buyer, 1-1/2 cm dilated, 75% effaced, -2 station. ASSESSMENT: Intrauterine at 39 and 2/7 weeks, heart rate category 1, gestational diabetes versus preeclampsia. PLAN: Admit the patient to labor and delivery per consult with Dr. Marcell Burciaga. Routine laboratories with the addition of a preeclamptic profile and a spot urine. Out of bed ad valente. Regular diet at this time. Saline lock for IV access. I did review risks, benefits and alternatives. All of her questions have been answered. She has been verbally consented for emergency surgery and blood products if they are necessary. I plan to start Misoprostol 50 mcg p.o. every 4 hours for cervical ripening. I do anticipate cervical ripening. MTDD
[2020-07-05] MEDS: LABETALOL 200 MG TAB PO SCH ×2 (13:38→21:00)
[2020-07-06] VITALS (8 sets, daily range): BP systolic 126–163; BP diastolic 68–85
[2020-07-06] MEDS: ACETAMINOPHEN 500 MG TAB PO PRN (06:02)
--- NOTE | 2020-07-06 07:15 | IPNPDOC ---
Text Note Date of Service The patient was seen on 07/06/20. NOTE PP#1 Feels well. Adequate pain management. Voiding. in NICU BP coming under better control. Has had 2 doses labetalol at this point Afebrile Fundus firm, NT, down 1 FB Lochia rubra light without odor Perineum well approximated PP #1 Routine care. Considering discharge in am. VS,Fishbone, I+O VS, Fishbone, I+O Vital Signs Date Time Temp Pulse Resp B/P (MAP) Pulse Ox O2 Delivery O2 Flow Rate FiO2 07/06/20 06:00 98.2 96 16 126/73 (90) 98 Room Air I&O- Last 24 Hours up to 6 AM 07/06/20 05:59 Output Total 800 ml Balance -800 ml Frances [place] CNM Jul 06, 2020 07:15
[2020-07-06] MEDS: LABETALOL 200 MG TAB PO SCH ×2 (10:03→21:12)
[2020-07-06] MEDS: PRENATAL VITAMINS CHEWABLE TABLET PO SCH (10:03)
[2020-07-07 02:00] VITALS: BP 131/73
[2020-07-07 06:00] VITALS: BP 118/73
[2020-07-07] MEDS: ACETAMINOPHEN 500 MG TAB PO PRN (06:54)
[2020-07-07] MEDS: PRENATAL VITAMINS CHEWABLE TABLET PO SCH (08:25)
[2020-07-07] MEDS: LABETALOL 200 MG TAB PO SCH ×2 (08:28→20:20)
[2020-07-07 10:00] VITALS: BP 135/84
--- NOTE | 2020-07-07 10:51 | IPNPDOC ---
Progress Note Date of Service: Jul 07, 2020 Progress Note SUBJECT: Status post . She has been ambulating, voiding spontaneously without issue and tolerating regular diet. Lochia decreasing/minimal. Pain is well-controlled. Denies headache, visual changes, right upper quadrant pain, shortness breath or chest pain. Complicated by HDP; labetalol 200mg BID started. Intermittently hypertensive yesterday/last night. OBJECTIVE: VITAL SIGNS: Hypertensive, normal HR, afebrile. (See [employer]) Alert and oriented times three. Abdomen: Fundus firm at U-2. Soft, NTTP. ASSESSMENT: Status post uncomplicated spontaneous vaginal delivery. Hypertensive, afebrile, hemodynamically stable with no evidence of infection. PLAN: Anticipate discharge to home tomorrow Continue Labetalol 200mg PO BID and adjust as needed. Tylenol and Motrin for pain. VS, I&O, 24H, Fishbone Vital Signs/I&O Vital Signs Date Time Temp Pulse Resp B/P (MAP) Pulse Ox O2 Delivery O2 Flow Rate FiO2 07/07/20 10:00 98.7 87 18 135/84 (101) 98 07/07/20 06:00 Room Air JERALD FRANCO DO Jul 07, 2020 10:51
[2020-07-07 14:00] VITALS: BP 143/83
[2020-07-07 17:59] VITALS: BP 142/90
[2020-07-07 20:26] VITALS: BP 138/85
[2020-07-08 02:00] VITALS: BP 133/82
[2020-07-08 07:05] VITALS: BP 138/88
--- NOTE | 2020-07-08 07:41 | IPNPDOC ---
Progress Note Date of Service: Jul 08, 2020 Progress Note SUBJECT: Status post . She has been ambulating, voiding spontaneously without issue and tolerating regular diet. Lochia decreasing/minimal. Pain is well-controlled. Denies headache, visual changes, right upper quadrant pain, shortness breath or chest pain. Complicated by hypertension, controlled with Labetalol 200mg BID. OBJECTIVE: VITAL SIGNS: Within normal limits, afebrile. Alert and oriented times three. Abdomen: Fundus firm at U-2. Soft, NTTP. ASSESSMENT: Status post uncomplicated spontaneous vaginal delivery. Vitals within normal limits, afebrile, hemodynamically stable with no evidence of i nfection. Baby is being transferred to [facility] for cardiac arrhythmia. PLAN: Discharge to home today. Continue labetalol 200mg BID. Tylenol and Motrin for pain. Routine instructions/precautions reviewed. Routine PP visit in 6 weeks in clinic. VS, I&O, 24H, Fishbone Vital Signs/I&O Vital Signs Date Time Temp Pulse Resp B/P (MAP) Pulse Ox O2 Delivery O2 Flow Rate FiO2 07/08/20 07:05 98.6 74 20 138/88 (105) 100 Room Air I&O- Last 24 Hours up to 6 AM 07/08/20 06:00 Intake Total 240 ml Balance 240 ml JERALD FRANCO DO Jul 08, 2020 07:41
[2020-07-08] MEDS ORDERED: LABE20TAB PO ×2 (07:42→09:39)
[2020-07-08 08:03] VITALS: BP 138/88
[2020-07-08] MEDS: LABETALOL 200 MG TAB PO SCH (08:03)
[2020-07-08] MEDS: PRENATAL VITAMINS CHEWABLE TABLET PO SCH (08:03)
== END 2020-07-08 11:20 | disposition home or self-care (01) | DRG 807 ==
LOC: M LDI 16:47 → M OBS 07-05 04:16
PROVIDERS: ADMIT Advanced Practice Midwife; ATTEND Advanced Practice Midwife
PROC: 10E0XZZ Delivery of Products of Conception, External Approach (ICD-10-PCS; principal; 2020-07-05)
DX: O13.4 Gestational [pregnancy-induced] hypertension without significant proteinuria, complicating childbirth (principal); Z37.0 Single live birth; Z3A.39 39 weeks gestation of pregnancy

== ENCOUNTER → 2020-12-03 | Outpatient (REF) | payer OTHER ==
[~2020-12-03] MED LIST: FLUT44IN INH; LABE20TAB PO; PNV1TAB6 PO; PROAAER10 INH
== END ==
LOC: M SFHCWAGY 19:11
PROVIDERS: ATTEND Obstetrics & Gynecology
DX: Z12.4 Encounter for screening for malignant neoplasm of cervix (principal)
CPT/HCPCS: G0123; G0463

== ENCOUNTER → 2021-04-09 | Outpatient (CLI) | payer OTHER ==
[2021-04-09 17:34] LABS: BASO % 0.3 % (0.0-1.0); EOS # 0.2 10^3/uL (0.0-0.5); HEMATOCRIT 37.5 % (36.0-47.0); HEMOGLOBIN 12.2 g/dl (12.0-15.5); LYMPH # 2.5 10^3/uL (1.5-5.0); LYMPH % 22.6 % (24.0-44.0); MEAN CORPUSCULAR HEMOGLOBIN 30.5 pg (27.0-33.0); MEAN CORPUSCULAR HGB CONC 32.5 g/dl (32.0-36.5); MEAN CORPUSCULAR VOLUME 93.8 fl (80.0-96.0); MONO # 0.7 10^3/uL (0.0-0.8); MONO % 6.1 % (2.0-8.0); NEUTROPHILS # 7.5 10^3/uL (1.5-8.5); NEUTROPHILS % 68.5 % (36.0-66.0); PLATELET COUNT, AUTOMATED 342 10^3/uL (150-450)
[2021-04-09 19:36] LABS: HEPATITIS C VIRUS ABY INDEX 0.1 INDEX (<0.8); HIV 1&2 SCREEN CENTAUR NEGATIVE (NEGATIVE)
[2021-04-09 21:12] LABS: GC DNA AMPLIFICATION NEGATIVE (NEGATIVE)
== END ==
LOC: M PLALAB 15:57
PROVIDERS: ATTEND Obstetrics & Gynecology
DX: Z36.9 Encounter for antenatal screening, unspecified (principal); Z3A.00 Weeks of gestation of pregnancy not specified

== ENCOUNTER → 2021-05-29 | Outpatient (CLI) | payer OTHER | LOC: M WHC 07:49 | PROVIDERS: ATTEND Obstetrics & Gynecology | DX: Z36.9 Encounter for antenatal screening, unspecified (principal); Z3A.19 19 weeks gestation of pregnancy ==

== ENCOUNTER 2021-09-23 12:45 | Outpatient (CLI) | payer OTHER ==
[~2021-09-23] VITALS: Ht 162.6 cm; Wt 104.4 kg
[2021-09-23] VITALS (9 sets, daily range): BP systolic 119–137; BP diastolic 59–86
[2021-09-23] MEDS ORDERED: ACET325C5 PO (13:15)
[2021-09-23 14:09] LABS: HEMATOCRIT 35.1 % (36.0-47.0); HEMOGLOBIN 11.5 g/dl (12.0-15.5); MEAN CORPUSCULAR HEMOGLOBIN 30.7 pg (27.0-33.0); MEAN CORPUSCULAR HGB CONC 32.8 g/dl (32.0-36.5); MEAN CORPUSCULAR VOLUME 93.6 fl (80.0-96.0); PLATELET COUNT, AUTOMATED 325 10^3/uL (150-450); RED BLOOD COUNT 3.75 10^6/uL (4.00-5.40); WHITE BLOOD COUNT 9.5 10^3/uL (4.0-10.0)
[2021-09-23 14:29] LABS: ALT/SGPT 15 U/L (12-78); BILIRUBIN,TOTAL 0.2 MG/DL (0.2-1.0); CREATININE FOR GFR 0.49 MG/DL (0.55-1.30); GLOMERULAR FILTRATION RATE > 60.0 (>60); LDH LACTATE DEHYDROGENASE 154 U/L (84-246); URIC ACID 4.4 MG/DL (2.6-6.0)
[2021-09-25] MEDS ORDERED: FLOV100A INH (16:20)
== END 2021-09-23 15:15 | disposition home or self-care (01) ==
LOC: M LDO 12:45
PROVIDERS: ATTEND Specialist
DX: O16.3 Unspecified maternal hypertension, third trimester (principal); Z3A.36 36 weeks gestation of pregnancy
CPT/HCPCS: 36415; 59025; 82247; 82565; 82570; 83615; 84156; 84450; 84460; 84550; 85027; G0378; G0463

== ENCOUNTER → 2022-03-23 | Outpatient (REF) | payer OTHER ==
[~2022-03-23] MED LIST changes: +ACET325C5 PO; +FLOV100A INH
== END ==
LOC: M SFHCWAGY 12:56
PROVIDERS: ATTEND Obstetrics & Gynecology
DX: Z12.4 Encounter for screening for malignant neoplasm of cervix (principal)

== ENCOUNTER → 2022-07-23 | Outpatient (CLI) | payer OTHER | LOC: M RAD 14:39 | PROVIDERS: ATTEND Physician Assistant | DX: M54.6 Pain in thoracic spine (principal) ==

== ENCOUNTER → 2024-02-07 | Outpatient (CLI) | payer OTHER ==
[2024-02-07 14:32] LABS: BASO # 0.1 10^3/uL (0.0-0.2); BASO % 0.6 % (0.0-1.0); EOS # 0.4 10^3/uL (0.0-0.5); EOS % 4.3 % (0.0-3.0); HEMATOCRIT 44.1 % (36.0-47.0); HEMOGLOBIN 14.3 g/dl (12.0-15.5); LYMPH # 2.2 10^3/uL (1.5-5.0); LYMPH % 25.8 % (24.0-44.0); MEAN CORPUSCULAR HEMOGLOBIN 30.6 pg (27.0-33.0); MEAN CORPUSCULAR HGB CONC 32.4 g/dl (32.0-36.5); MEAN CORPUSCULAR VOLUME 94.4 fl (80.0-96.0); MONO # 0.8 10^3/uL (0.0-0.8); NEUTROPHILS # 5.1 10^3/uL (1.5-8.5); NEUTROPHILS % 60.1 % (36.0-66.0); PLATELET COUNT, AUTOMATED 324 10^3/uL (150-450); RED BLOOD COUNT 4.67 10^6/uL (4.00-5.40); WHITE BLOOD COUNT 8.5 10^3/uL (4.0-10.0)
[2024-02-07 14:44] LABS: FERRITIN 41.2 NG/ML (7.3-270.7); FREE T4 1.25 NG/DL (0.89-1.76); THYROID STIMULATING HORMONE 0.805 uIU/ML (0.55-4.78)
[2024-02-07 14:45] LABS: TOTAL 25(OH) VITAMIN D 27.8 NG/ML (20.0-100.0)
[2024-02-07 14:46] LABS: VITAMIN B12 LEVEL 408 PG/ML (211-911)
[2024-02-07 14:47] LABS: ALBUMIN 3.4 G/DL (3.2-5.2); ALKALINE PHOSPHATASE 94 U/L (46-116); ALT/SGPT 25 U/L (7.0-40); AST/SGOT 13 U/L (<34); BILIRUBIN,TOTAL 0.4 MG/DL (0.3-1.2); BLOOD UREA NITROGEN 11 MG/DL (9-23); CALCIUM LEVEL 9.1 MG/DL (8.5-10.1); CARBON DIOXIDE LEVEL 28 MMOL/L (20-31); CHLORIDE LEVEL 108 MMOL/L (98-107); CHOLESTEROL LEVEL 221 MG/DL (<200); CHOLESTEROL RISK RATIO 3.09 (<5); CREATININE FOR GFR 0.81 MG/DL (0.55-1.30); GLOMERULAR FILTRATION RATE > 60.0 (>60); GLUCOSE, FASTING 84 MG/DL (60-100); HDL CHOLESTEROL 71.3 MG/DL (>40); IRON (FE) 103 UG/DL (50-170); LDL CHOLESTEROL 131.1 MG/DL (<100); NON-HDL-C 149.7 MG/DL; POTASSIUM SERUM 4.5 MMOL/L (3.5-5.1); SODIUM LEVEL 141 MMOL/L (136-145); TRIGLYCERIDES LEVEL 93 MG/DL (<150)
== END ==
LOC: M PLALAB 09:34
PROVIDERS: ATTEND Physician Assistant
DX: Z13.220 Encounter for screening for lipoid disorders (principal); Z13.29 Encounter for screening for other suspected endocrine disorder; E55.9 Vitamin D deficiency, unspecified

== ENCOUNTER → 2025-02-22 | Outpatient (REF) | payer BC | LOC: M PLALAB 09:36 | PROVIDERS: ATTEND Advanced Practice Midwife | DX: Z53.8 Procedure and treatment not carried out for other reasons (principal) ==

== ENCOUNTER → 2025-02-22 | Outpatient (CLI) | payer BC ==
[2025-02-22 13:37] LABS: PLATELET COUNT, AUTOMATED 341 10^3/uL (150-450)
[2025-02-22 13:43] LABS: LDH LACTATE DEHYDROGENASE 149 U/L (120-246)
[2025-02-22 13:45] LABS: ALT/SGPT 18 U/L (7.0-40); AST/SGOT 12 U/L (<34); CREATININE FOR GFR 0.62 MG/DL (0.55-1.30); GLOMERULAR FILTRATION RATE > 90.0 (>60)
[2025-02-22 14:01] LABS: TOTAL PROTEIN,RANDOM URINE 20.1 MG/DL (0.0-14.0)
[2025-02-22 14:12] LABS: HIV 1&2 SCREEN NEGATIVE (NEGATIVE)
[2025-02-22 14:19] LABS: HEPATITIS C VIRUS ABY INDEX 0.03 INDEX (<0.8)
[2025-02-22 14:54] LABS: Trichomonas vaginalis (AMP) NOT DETECTED (NEGATIVE)
[2025-02-22 15:18] LABS: GC DNA AMPLIFICATION NEGATIVE (NEGATIVE)
== END ==
LOC: M PLALAB 10:27
PROVIDERS: ATTEND Advanced Practice Midwife
DX: O10.919 Unspecified pre-existing hypertension complicating pregnancy, unspecified trimester (principal)

== ENCOUNTER → 2025-04-27 | Outpatient (CLI) | payer BC | LOC: M WHC 10:24 | PROVIDERS: ATTEND Student in an Organized Health Care Education/Training Program | DX: Z34.82 Encounter for supervision of other normal pregnancy, second trimester (principal); Z3A.20 20 weeks gestation of pregnancy ==

== ENCOUNTER → 2025-05-21 | Outpatient (REF) | payer BC | LOC: M PLALAB 09:06 | PROVIDERS: ATTEND Specialist | DX: Z53.9 Procedure and treatment not carried out, unspecified reason (principal) ==